=== PATIENT | male | born 1945 | race Caucasian/White ===

== ENCOUNTER 2017-12-16 12:35 | Outpatient (CLI) | payer OTHER ==
--- NOTE | 2017-12-16 14:44 | RAD ---
TWO VIEW CHEST: History: Dyspnea. FINDINGS: Lungs are clear. There is mild hyperexpansion suggesting COPD. Vascular markings are normal. Heart an d mediastinum appear normal. There is a prominent wedge compression deformity involving a midthoracic vertebrae with loss of anter ior height of over 50%. IMPRESSION: 1. No acute lung process. 2. Wedge compression of midthoracic vertebrae. POS: [facility]
== END 2017-12-16 12:36 | disposition home or self-care (01) ==
LOC: RAD 12:35
PROVIDERS: ATTEND Internal Medicine Pulmonary Disease
DX: R06.00 Dyspnea, unspecified (principal); M51.84 Other intervertebral disc disorders, thoracic region
CPT/HCPCS: 71046

== ENCOUNTER 2024-10-19 15:45 | Outpatient (CLI) | payer OTHER | END 2024-10-19 15:46 | disposition home or self-care (01) | LOC: SCSRAD 15:45 | PROVIDERS: ATTEND Family Medicine | DX: M25.511 Pain in right shoulder (principal) ==